=== PATIENT | male | born 1960 | race Caucasian/White ===

== ENCOUNTER → 2024-11-06 | Outpatient (CLI) | payer BC ==
[~2024-11-06] MED LIST: ALIG4CAP3 PO; ASPI325T57 PO; CLOP75TA2 PO; ETAN50PE SC; HYDR25SU61 RC; LISI10TA22 PO; METHACHOLINE KIT (6 VIAL.NEB PREMIX) INH ONE; METO1TAB87 PO; NITR0.4S14 PO; OMEP-173 PO; ROSU20TA86 PO; TRAZ-252 PO; VITA100093 PO; VITA500C24 PO; ZOLO100T PO
== END ==
LOC: M CARPUL 08:09
PROVIDERS: ATTEND Nurse Practitioner Adult Health
DX: R06.02 Shortness of breath (principal)
CPT/HCPCS: 88738; 94010; 94070; 94726; 94729; 95070; J7674